=== PATIENT | female | born 1985 | race Caucasian/White ===

== ENCOUNTER 2016-09-17 22:30 | Emergency (ER) | payer OTHER ==
[~2016-09-17] VITALS: Ht 154.9 cm; Wt 71.6 kg
[~2016-09-17 22:30] MED LIST: NAPROSYN500 MG PO; NORCO 5/3251 TABLET PO; PERCOCET 5/31 TABLET PO; PREDNISONE10 MG PO; PREDNISONE20 MG PO
[2016-09-17] MEDS ORDERED: NAPROSYN500 MG PO (22:53)
[2016-09-17] MEDS ORDERED: LIDODERM 5% P1 PATCH TD (22:53)
[2016-09-17 23:46] VITALS: BP 128/89
== END 2016-09-17 23:47 | disposition home or self-care (01) ==
LOC: EME 22:30
DX: S29.012A Strain of muscle and tendon of back wall of thorax, initial encounter (principal); V43.52XA Car driver injured in collision with other type car in traffic accident, initial encounter; Y92.410 Unspecified street and highway as the place of occurrence of the external cause; Z76.5 Malingerer [conscious simulation]; Z88.0 Allergy status to penicillin
CPT/HCPCS: 99281; 99283